=== PATIENT | male | born 2005 | race Caucasian/White ===

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

== ENCOUNTER 2023-12-18 15:41 | Emergency (ER) | payer MEDICAID ==
[~2023-12-18] VITALS: Ht 190.5 cm; Wt 163.8 kg
[~2023-12-18 15:41] MED LIST: ONDA8TAB13 PO
[2023-12-18 16:26] VITALS: BP 123/85; PULSE 74; RESP 18; O2SAT 100
[2023-12-18 17:45] VITALS: TEMP 98.2
== END 2023-12-18 17:46 | disposition home or self-care (01) ==
LOC: ER 15:42
DX: S46.912A Strain of unspecified muscle, fascia and tendon at shoulder and upper arm level, left arm, initial encounter (principal); Z88.1 Allergy status to other antibiotic agents; Z88.8 Allergy status to other drugs, medicaments and biological substances; Z79.899 Other long term (current) drug therapy; X50.0XXA Overexertion from strenuous movement or load, initial encounter; Y93.89 Activity, other specified; Y92.89 Other specified places as the place of occurrence of the external cause; Y99.8 Other external cause status
CPT/HCPCS: 73030; 99283; A4565